=== PATIENT | female | born 1945 | race Caucasian/White ===

== ENCOUNTER 2025-01-22 15:24 | Outpatient (REF) | payer MEDICARE, SELFPAY ==
[2025-01-22 14:45] LABS: Abs Immature Grans 0.04 10^3/uL (0.0-0.06); Absolute Basophil Count 0.08 10^3/uL (0.0-0.2); Absolute Eosinophil Count 0.49 10^3/uL (0.0-0.7); Absolute Lymphocyte Count 0.98 10^3/uL (1.2-3.4); Absolute Monocyte Count 1.01 10^3/uL (0.1-0.8); Absolute Neutrophil Count 8.76 10^3/uL (1.2-6.7); Basophils % 0.7 %; Eosinophils % 4.3 %; HCT 29.3 % (36.0-46.0); HGB 9.5 g/dL (11.2-15.7); Immature Grans % 0.4 %; Lymphocytes % 8.6 %; MCH 29.4 pg (27.0-33.0); MCHC 32.4 % (32.0-36.0); MCV 91 fL (80-95); MPV 10.5 fL (8.0-11.0); Monocytes % 8.9 %; Neutrophils % 77.1 %; Platelet Count 502 10^3/uL (130-400); RBC 3.23 10^6/uL (3.93-5.22); RDW 14.8 % (11.7-14.6); RDW-SD 49.2 fL; WBC 11.36 10^3/uL (4.4-10.8)
[2025-01-22 15:08] LABS: ALT 30 U/L (14-59); AST 22 U/L (15-37); Alkaline Phosphatase 128 U/L (46-116); Anion Gap 9.3 mmol/L (3-11); BUN 18 mg/dL (7-18); Bilirubin, Total 0.4 mg/dL (0.2-1.0); CO2 28.7 mmol/L (21.0-32.0); CREATININE 0.9 mg/dL (0.55-1.02); Calcium 8.9 mg/dL (8.5-10.1); Chloride 97 mmol/L (98-107); Estimated GFR 65.44 (mL/min/1.73m2); Glucose 211 mg/dL (74-106); Potassium 4.6 mmol/L (3.5-5.1); Sodium 135 mmol/L (136-145); TSH 13.02 uIU/mL (0.36-3.74); Total Protein 5.9 g/dL (6.4-8.2)
[2025-01-22 15:10] LABS: Hemoglobin A1C 6.5 % (<5.7)
== END 2025-01-22 15:25 | disposition home or self-care (01) ==
LOC: NCHCN 15:24
PROVIDERS: PCP Family Medicine; Visit Provider Family Medicine
DX: E11.59 Type 2 diabetes mellitus with other circulatory complications (principal); E78.5 Hyperlipidemia, unspecified; I50.9 Heart failure, unspecified
CPT/HCPCS: 80053; 83036; 84443; 85025